=== PATIENT | male | born 1950 | race Caucasian/White ===

== ENCOUNTER 2018-12-30 20:34 | Emergency (ER) | payer MEDICARE ==
--- NOTE | 2018-12-30 21:54 | CT ---
EXAMINATION TYPE: CT facial bones wo con DATE OF EXAM: 12/30/2018 COMPARISON: None HISTORY: Fall, nasal pain. CT DLP: 767.7 mGycm Automated exposure control for dose reduction was used. TECHNIQUE: CT scan of the sinuses is performed without contrast, axial images are obtained, coronal r eformatted images are also reviewed. FINDINGS: The paranasal sinuses including the frontal, ethmoid, sphenoid, and maxillary sinuses bila terally are well-aerated with exception of some mild inflammatory change in the ethmoid air cells. Co ncha bullosa present on the right. The ostiomeatal complex is patent bilaterally on the coronal image s. Visualized portion of mastoid air cells show no abnormal opacification. The globes are intact bilate rally. No displaced nasal bone fracture evident. Orbits are symmetric. IMPRESSION: The sinuses are clear and the ostiomeatal complex is patent bilaterally. No evident fract ure.
--- NOTE | 2018-12-30 22:12 | ED ---
ENT HPI - General Chief complaint: ENT Stated complaint: Fall Time Seen by Provider: 12/30/18 21:21 Source: patient, family, RN notes reviewed, old records reviewed Mode of arrival: ambulatory Limitations: no limitations - History of Present Illness Initial comments: This is a 68-year-old male the ER for evaluation status post fall. Patient is on blood thinners. No loss of consciousness. Patient fell for tenderness and a picnic table. He did hit his nose and again no loss of consciousness is complaining of nose pain. He did have significant bleeding from nose at the time that is currently stopped MD complaint: epistaxis (An), trauma/injury -: hour(s) Location: nose Severity: moderate Severity scale (1-10): 4 Quality: aching Consistency: constant Worsens with: none - Related Data Home Medications Medication Instructions Recorded Confirmed Allopurinol [Zyloprim] 100 mg PO DAILY 12/30/18 12/30/18 Irbesartan/Hydrochlorothiazide 1 tab PO DAILY 12/30/18 12/30/18 [Avalide 300-12.5 mg Tablet] Vitamin B Complex 1 cap PO DAILY 12/30/18 12/30/18 glipiZIDE [Glucotrol] 10 mg PO AC-BRKFST 12/30/18 12/30/18 sitaGLIPtin [Januvia] 100 mg PO DAILY 12/30/18 12/30/18 Allergies Allergy/AdvReac Type Severity Reaction Status Date / Time No Known Allergies Allergy Verified 12/30/18 21:18 Review of Systems ROS Statement: Those systems with pertinent positive or pertinent negative responses have been documented in the HPI. ROS Other: All systems not noted in ROS Statement are negative. Past Medical History Past Medical History: Diabetes Mellitus, Hypertension History of Any Multi-Drug Resistant Organisms: None Reported Past Surgical History: Cholecystectomy, Hernia Repair Past Psychological History: No Psychological Hx Reported Smoking Status: Never smoker Past Alcohol Use History: None Reported Past Drug Use History: None Reported General Exam - General Exam Comments Initial Comments: No septal hematoma Limitations: no limitations General appearance: alert, in no apparent distress Head exam: Present: atraumatic, normocephalic, normal inspection Eye exam: Present: normal appearance, PERRL, EOMI. Absent: scleral icterus, conjunctival injection, periorbital swelling ENT exam: Present: normal exam, mucous membranes moist Neck exam: Present: normal inspection. Absent: tenderness, meningismus, lymphadenopathy Respiratory exam: Present: normal lung sounds bilaterally. Absent: respiratory distress, wheezes, rales, rhonchi, stridor Cardiovascular Exam: Present: regular rate, normal rhythm, normal heart sounds. Absent: systolic murmur, diastolic murmur, rubs, gallop, clicks GI/Abdominal exam: Present: soft, normal bowel sounds. Absent: distended, tenderness, guarding, rebound, rigid Extremities exam: Present: normal inspection, full ROM, normal capillary refill. Absent: tenderness, pedal edema, joint swelling, calf tenderness Back exam: Present: normal inspection Neurological exam: Present: alert, oriented X3, CN II-XII intact Psychiatric exam: Present: normal affect, normal mood Skin exam: Present: warm, dry, intact, normal color. Absent: rash Course Vital Signs 12/30/18 12/30/18 20:35 22:26 Temperature 97.7 F 98.7 F Pulse Rate 90 87 Respiratory 20 18 Rate Blood Pressure 180/85 178/78 O2 Sat by Pulse 95 98 Oximetry Medical Decision Making - Medical Decision Making 68 male the ER for evaluation. Patient has nosebleed secondary to traumatic injury CT is negative for fracture patient can be discharged home, bleeding has stopped, patient's blood thinners and has no septal hematoma or Disposition Clinical Impression: Fall, Facial contusion Disposition: HOME SELF-CARE Condition: Good Instructions (If sedation given, give patient instructions): Nosebleed (ED) Is patient prescribed a controlled substance at d/c from ED?: No Referrals: Jesus Odonnell MD [Primary Care Provider] - 1-2 days
[2018-12-30 22:27] VITALS: BP 178/78; PULSE 87; RESP 18; TEMP 98.7
== END 2018-12-30 22:26 | disposition home or self-care (01) ==
LOC: EC 20:34
DX: S00.83XA Contusion of other part of head, initial encounter (principal); E11.9 Type 2 diabetes mellitus without complications; I10 Essential (primary) hypertension; Z79.84 Long term (current) use of oral hypoglycemic drugs; Z79.899 Other long term (current) drug therapy; W19.XXXA Unspecified fall, initial encounter; Y92.009 Unspecified place in unspecified non-institutional (private) residence as the place of occurrence of the external cause
CPT/HCPCS: 70486; 99284